=== PATIENT | female | born 1955 | race Caucasian/White ===

== ENCOUNTER 2024-02-22 13:01 | Inpatient (IN) | payer MEDICARE, OTHER ==
[~2024-02-22] VITALS: Ht 165.1 cm; Wt 73.9 kg
[2024-02-22 13:53] VITALS: BP_SYST 113; PULSE 99; RESP 16; TEMP 97.7; O2SAT 99
[2024-02-22 15:31] LABS: BILIRUBIN,URINE NEGATIVE (NEGATIVE); BLOOD, URINE NEGATIVE (NEGATIVE); CLARITY/URINE CLEAR (CLEAR); COLOR,URINE YELLOW (YELLOW); GLUCOSE,URINE NEGATIVE (NEGATIVE); KETONES,URINE NEGATIVE (NEGATIVE); LEUKOCYTE ESTERASE ,URINE NEGATIVE (NEGATIVE); NITRITE, URINE NEGATIVE (NEGATIVE); PH,URINE 7.5 (5.0-8.0); PROTEIN URINE NEGATIVE (NEGATIVE); UROBILINOGEN,URINE 0.2 (0.2-1.0)
[2024-02-22] MEDS: NACL 0.9% 1,000 ML IV ONE (15:52)
[2024-02-22] MEDS: KETOROLAC TROMETHAMINE 30 MG VIAL IVP ONE (15:54)
[2024-02-22] MEDS: ONDANSETRON HCL 4 MG/2 ML VIAL IVP ONE ×2 (15:55→17:31)
[2024-02-22 15:58] LABS: BASOPHILS % (AUTO) 0.3 % (0.0-2.0); EOSINOPHILS % (AUTO) 0.3 % (0.0-4.0); HEMATOCRIT 34.7 % (36-48); HEMOGLOBIN 12.4 g/dL (12.0-16.0); LYMPHOCYTES # (AUTO) 2.5 K/uL (1.0-5.5); LYMPHOCYTES % (AUTO) 24.7 % (20.5-51.5); MEAN CORPUSCULAR HEMOGLOBIN 29 pg (27-31); MEAN CORPUSCULAR HGB CONC 36 % (32-36); MEAN CORPUSCULAR VOLUME 82 fL (79.0-98.0); MONOCYTES # (AUTO) 1.1 K/uL (0.0-1.0); NEUTROPHILS # (AUTO) 6.6 K/uL (1.8-7.7); NEUTROPHILS % (AUTO) 63.7 % (40.0-70.0); PLATELET COUNT (AUTO) 200 K/uL (130-430); RED BLOOD CELL COUNT(AUTO) 4.25 MIL/uL (4.2-6.2); WHITE BLOOD COUNT (AUTO) 10.3 K/uL (4.8-10.8)
[2024-02-22 16:43] LABS: INR 0.9 (0.8-1.2); PROTHROMBIN TIME 10.1 SECS (9.5-12.5)
[2024-02-22 16:46] LABS: ALANINE AMINOTRANSFERASE 26 U/L (12-78); ALBUMIN 4.2 g/dL (3.4-4.8); ANION GAP 8 (5-15); ASPARTATE AMINOTRANSFERASE 25 U/L (10-37); BILIRUBIN,DIRECT 0.2 mg/dL (0.0-0.3); CALCIUM 9.9 mg/dL (8.4-11.0); CARBON DIOXIDE 33 mmol/L (23-29); CHLORIDE 101 mmol/L (98-107); CREATININE 0.87 mg/dL (0.55-1.30); GFR AFRICAN AMERICAN 83 mL/min (>90); GLUCOSE 116 mg/dL (74-106); SODIUM SERUM 142 mmol/L (136-145); TOTAL BILIRUBIN 1.1 mg/dL (0.0-1.0); TOTAL PROTEIN, SERUM 7.9 g/dL (6.4-8.3); UREA NITROGEN, BLOOD 11 mg/dL (8-21)
[2024-02-22 16:48] LABS: GFR NON AFRICAN-AMERICAN 69 mL/min (>90)
[2024-02-22] MEDS: POTASSIUM CHLORIDE 20 MEQ/PKT PACKET PO ONE (17:24)
[2024-02-22] MEDS: MORPHINE 2 MG/ML INJ. SYRINGE IVP ONE (17:29)
[2024-02-22 17:41] LABS: INFLUENZA TYPE A Negative (NEGATIVE); INFLUENZA TYPE B NEGATIVE (NEGATIVE)
[2024-02-22] MEDS ORDERED: CHOL200075 PO (17:42)
[2024-02-22] MEDS ORDERED: CHLO50TA PO (17:42)
[2024-02-22] MEDS ORDERED: POTA-360 PO (17:42)
[2024-02-22] MEDS ORDERED: FERR325T30 PO (17:42)
[2024-02-22] MEDS ORDERED: AMLO10TA88 PO (17:42)
[2024-02-22] MEDS ORDERED: LEVO50TA8 PO (17:42)
[2024-02-22] MEDS ORDERED: LOSA100T24 PO (17:42)
[2024-02-23] VITALS (8 sets, daily range): BP systolic 96–127; PULSE 83–119; RESP 14–20; TEMP 97.6–99.6; O2SAT 95–100
[2024-02-23] MEDS: ONDANSETRON HCL 4 MG/2 ML VIAL IVP PRN (04:52)
[2024-02-23] MEDS: HYDROcodone/ACETAMIN 5-325 MG TAB (NORCO/ VICODIN) PO PRN (04:54)
[2024-02-23 06:12] LABS: BASOPHILS % (AUTO) 0.3 % (0.0-2.0); EOSINOPHILS # (AUTO) 0.1 K/uL (0.0-0.4); EOSINOPHILS % (AUTO) 0.9 % (0.0-4.0); HEMATOCRIT 33.7 % (36-48); HEMOGLOBIN 11.7 g/dL (12.0-16.0); LYMPHOCYTES # (AUTO) 2.2 K/uL (1.0-5.5); LYMPHOCYTES % (AUTO) 27.9 % (20.5-51.5); MEAN CORPUSCULAR HEMOGLOBIN 29 pg (27-31); MEAN CORPUSCULAR HGB CONC 35 % (32-36); MEAN CORPUSCULAR VOLUME 83 fL (79.0-98.0); MONOCYTES # (AUTO) 0.8 K/uL (0.0-1.0); MONOCYTES % (AUTO) 10.8 % (1.7-9.3); NEUTROPHILS # (AUTO) 4.7 K/uL (1.8-7.7); NEUTROPHILS % (AUTO) 60.1 % (40.0-70.0); PLATELET COUNT (AUTO) 193 K/uL (130-430); RED BLOOD CELL COUNT(AUTO) 4.07 MIL/uL (4.2-6.2); RED CELL DISTRIBUTION WIDTH 14.4 % (9.0-15.0); WHITE BLOOD COUNT (AUTO) 7.8 K/uL (4.8-10.8)
[2024-02-23 06:26] LABS: CALCIUM 9.1 mg/dL (8.4-11.0); CREATININE 0.93 mg/dL (0.55-1.30); POTASSIUM 3.4 mmol/L (3.5-5.1)
[2024-02-23] MEDS: LEVOTHYROXINE SODIUM 0.05 MG TABLET PO SCH (06:53)
[2024-02-23] MEDS: FERROUS SULFATE 325 MG TABLET.DR PO SCH (09:22)
[2024-02-23] MEDS: amLODIPine BESYLATE 10 MG TABLET PO SCH (09:23)
[2024-02-23] MEDS: LOSARTAN POTASSIUM 50 MG TABLET (COZAAR) PO SCH (09:24)
[2024-02-23] MEDS: DULoxetine HCL 20 MG CAPSULE.DR PO ONE ×2 (13:00→23:14)
[2024-02-24] MEDS: ACETAMINOPHEN 325 MG TABLET PO PRN (04:09)
[2024-02-24 07:45] VITALS: BP_SYST 121; PULSE 82; RESP 16; TEMP 97.4; O2SAT 97
[2024-02-24 07:55] LABS: BASOPHILS % (AUTO) 0.5 % (0.0-2.0); CALCIUM 9.5 mg/dL (8.4-11.0); CREATININE 0.83 mg/dL (0.55-1.30); EOSINOPHILS # (AUTO) 0.1 K/uL (0.0-0.4); EOSINOPHILS % (AUTO) 1.6 % (0.0-4.0); HEMATOCRIT 37.9 % (36-48); HEMOGLOBIN 13.1 g/dL (12.0-16.0); LYMPHOCYTES # (AUTO) 3.3 K/uL (1.0-5.5); LYMPHOCYTES % (AUTO) 42.7 % (20.5-51.5); MEAN CORPUSCULAR HEMOGLOBIN 29 pg (27-31); MEAN CORPUSCULAR HGB CONC 35 % (32-36); MEAN CORPUSCULAR VOLUME 83 fL (79.0-98.0); MONOCYTES # (AUTO) 0.7 K/uL (0.0-1.0); MONOCYTES % (AUTO) 9.5 % (1.7-9.3); NEUTROPHILS # (AUTO) 3.5 K/uL (1.8-7.7); NEUTROPHILS % (AUTO) 45.7 % (40.0-70.0); PLATELET COUNT (AUTO) 229 K/uL (130-430); POTASSIUM 3.2 mmol/L (3.5-5.1); RED CELL DISTRIBUTION WIDTH 14.5 % (9.0-15.0); WHITE BLOOD COUNT (AUTO) 7.7 K/uL (4.8-10.8)
[2024-02-24] MEDS ORDERED: DULoxetine HCL 20 MG CAPSULE.DR PO SCH (09:00)
[2024-02-24] MEDS: methylPREDNISolone 4 MG TABLET PO SCH (09:24)
[2024-02-24] MEDS: DULoxetine HCL 20 MG CAPSULE.DR PO SCH (09:42)
[2024-02-24] MEDS ORDERED: SPIR25TA PO (10:45)
[2024-02-24] MEDS ORDERED: DULO20CA PO (10:45)
[2024-02-24] MEDS ORDERED: PRED10TA PO (10:47)
[2024-02-24 12:00] VITALS: BP_SYST 113; PULSE 95; RESP 17; TEMP 97.1; O2SAT 97
[2024-02-24] MEDS: POTASSIUM CHLORIDE 20 MEQ/PKT PACKET PO ONE (12:54)
[2024-02-24 13:02] VITALS: BP_SYST 113; PULSE 95; RESP 17; TEMP 97.1; O2SAT 97
== END 2024-02-24 13:25 | disposition home or self-care (01) | DRG 554 ==
LOC: SED 13:01 → STU 21:17
PROVIDERS: ADMIT Specialist; ATTEND Specialist
DX: M10.9 Gout, unspecified (principal); M79.672 Pain in left foot; E86.0 Dehydration; Z88.8 Allergy status to other drugs, medicaments and biological substances; I10 Essential (primary) hypertension; E87.6 Hypokalemia; E03.9 Hypothyroidism, unspecified; F32.A Depression, unspecified; Z20.822 Contact with and (suspected) exposure to COVID-19; F41.9 Anxiety disorder, unspecified; Z79.899 Other long term (current) drug therapy
CPT/HCPCS: 36415; 70450-TC; 71045; 80048; 80076; 81001; 81003; 83605; 84484; 84550; 85025; 85610; 85730; 87040; 87086; 93005; 96374; 99285; G0378; J1885; J2270; J2405; J7509

== ENCOUNTER 2024-02-24 18:25 | Emergency (ER) | payer MEDICARE, OTHER ==
[~2024-02-24] VITALS: Ht 162.6 cm; Wt 77.1 kg
[~2024-02-24 18:25] MED LIST: AMLO10TA88 PO; CHLO50TA PO; CHOL200075 PO; DULO20CA PO; FERR325T30 PO; LEVO50TA8 PO; LOSA100T24 PO; POTA-360 PO; PRED10TA PO; SPIR25TA PO
[2024-02-24 18:26] VITALS: BP_SYST 95; PULSE 87; RESP 18; TEMP 97.8; O2SAT 99
[2024-02-24 18:55] LABS: BASOPHILS % (AUTO) 0.4 % (0.0-2.0); EOSINOPHILS % (AUTO) 0.2 % (0.0-4.0); HEMATOCRIT 36.4 % (36-48); HEMOGLOBIN 12.8 g/dL (12.0-16.0); LYMPHOCYTES # (AUTO) 2.9 K/uL (1.0-5.5); MEAN CORPUSCULAR HEMOGLOBIN 29 pg (27-31); MEAN CORPUSCULAR HGB CONC 35 % (32-36); MEAN CORPUSCULAR VOLUME 82 fL (79.0-98.0); MONOCYTES # (AUTO) 0.4 K/uL (0.0-1.0); MONOCYTES % (AUTO) 5.4 % (1.7-9.3); NEUTROPHILS # (AUTO) 4.8 K/uL (1.8-7.7); PLATELET COUNT (AUTO) 246 K/uL (130-430); RED BLOOD CELL COUNT(AUTO) 4.47 MIL/uL (4.2-6.2); RED CELL DISTRIBUTION WIDTH 14.2 % (9.0-15.0); WHITE BLOOD COUNT (AUTO) 8.2 K/uL (4.8-10.8)
[2024-02-24 19:12] LABS: CALCIUM 10.2 mg/dL (8.4-11.0); CREATININE 1.63 mg/dL (0.55-1.30); POTASSIUM 4.1 mmol/L (3.5-5.1)
[2024-02-24] MEDS: NACL 0.9% 1,000 ML IV ONE (21:17)
[2024-02-24] MEDS: ASPIRIN 81 MG TAB.CHEW PO ONE (21:20)
[2024-02-24] MEDS ORDERED: ASPIRIN 81 MG TAB.CHEW ONE (21:23)
[2024-02-24 21:54] VITALS: BP_SYST 94; PULSE 78; RESP 18; TEMP 98.6; O2SAT 97
[2024-02-25] MEDS ORDERED: PIPERACILLIN/TAZOBACTAM 3.375 GM/VIAL (ZOSYN) IV ONE (00:55)
== END 2024-02-24 22:00 | disposition home or self-care (01) ==
LOC: SED 18:25
DX: I95.9 Hypotension, unspecified (principal); R55 Syncope and collapse; R07.89 Other chest pain; R06.02 Shortness of breath; I10 Essential (primary) hypertension; E03.9 Hypothyroidism, unspecified; Z79.899 Other long term (current) drug therapy; Z79.2 Long term (current) use of antibiotics
CPT/HCPCS: 99285; 96360; 71045; 80048; 83880; 85025; 84484; 36415; 93005; J7030; J2543